=== PATIENT | male | born 1955 | race Caucasian/White ===

== ENCOUNTER 2023-10-30 07:13 | Day surgery (SDC) | payer MEDICARE ==
[2023-10-30] MEDS: Lactated Ringers 1,000 ML IV SCH (07:47)
[2023-10-30] MEDS ORDERED: propofoL 50 ML ONE (07:54)
[2023-10-30] MEDS: Albuterol/Ipratropium 3.0-0.5 MG/3 ML Neb Soln NEB ONE (08:20)
[2023-10-30] MEDS ORDERED: Lidocaine 2% 5 ML SDV ONE (08:41)
[2023-10-30] MEDS ORDERED: Propofol 200 MG/20 ML SDV ONE (09:40)
== END 2023-10-30 11:02 | disposition home or self-care (01) ==
LOC: MW.SDS 07:13
PROVIDERS: ATTEND Surgery
DX: D12.3 Benign neoplasm of transverse colon (principal); D12.5 Benign neoplasm of sigmoid colon; K29.50 Unspecified chronic gastritis without bleeding; K31.A0 Gastric intestinal metaplasia, unspecified; R19.4 Change in bowel habit; K57.30 Diverticulosis of large intestine without perforation or abscess without bleeding; E11.9 Type 2 diabetes mellitus without complications; F17.210 Nicotine dependence, cigarettes, uncomplicated
CPT/HCPCS: 43239; 45380; 45381; 45385; 88305; 88342; 94640; J2704; J7120; J3490; J7620-GY